=== PATIENT | male | born 1960 | race Caucasian/White ===

== ENCOUNTER → 2019-08-07 | Outpatient (CLI) | payer MEDICARE ==
[~2019-08-07] MED LIST: ALBU8.5H8 INH; ATAZ1TAB PO; DRON5CAP PO; EMTR1TAB8 PO; FLUT10SP NAS; FLUT50DI INH; IPRA3AMP30 INH; OXCA300T19 PO
== END | disposition home or self-care (01) ==
LOC: CFH 12:02
PROVIDERS: ATTEND Nurse Practitioner Family
DX: Z12.2 Encounter for screening for malignant neoplasm of respiratory organs (principal); K44.9 Diaphragmatic hernia without obstruction or gangrene; J84.10 Pulmonary fibrosis, unspecified; Z87.891 Personal history of nicotine dependence
CPT/HCPCS: G0297